=== PATIENT | female | born 1950 | race Caucasian/White ===

== ENCOUNTER 2019-03-14 18:50 | Inpatient (IN) | payer MEDICARE, OTHER ==
[~2019-03-14] VITALS: Ht 157.5 cm; Wt 97.5 kg
[2019-03-14] MEDS ORDERED: METFORMIN HCL500 M3 PO (18:56)
[2019-03-14] MEDS ORDERED: LISINOPRIL20 MG PO (18:57)
[2019-03-14] MEDS ORDERED: SERTRALINE HCL100 MG PO (18:57)
[2019-03-14] MEDS ORDERED: CARDIZEM CD 18180 M3 PO (18:57)
[2019-03-14 19:40] LABS: ABSOLUTE BASOPHILS 0.1 thou/uL (0.0-0.2); ABSOLUTE EOSINOPHILS 0.1 thou/uL (0.0-0.7); ABSOLUTE LYMPHOCYTES 1.8 thou/uL (0.8-5.3); ABSOLUTE NEUTROPHILS 9.5 thou/uL (1.6-8.1); BASOPHILS 0.6 %; EOSINOPHILS 0.9 %; HEMATOCRIT 44.8 % (37.0-47.0); HEMOGLOBIN 14.9 gm/dL (12.0-15.0); LYMPHOCYTES 14.5 %; MCH 30.3 pg (26.0-34.0); MCHC 33.2 g/dL (28.0-37.0); MCV 91.4 fL (80.0-100.0); MPV 8.8 fl. (7.2-11.1); NUCLEATED RBCS 0 /100WBC; PLATELET COUNT* 213 thou/uL (150-400); RBC 4.91 mil/uL (4.20-5.00); RDW-CV 13.6 % (10.5-14.5); WBC 12.5 thou/uL (4.0-11.0)
[2019-03-14 19:59] LABS: APTT 24.3 Seconds (25.0-31.3); PROTIME 10.7 Seconds (9.20-11.50)
[2019-03-14 20:00] VITALS: BP 123/65
[2019-03-14 20:00] LABS: CALCIUM 9.5 mg/dL (8.5-10.1); CREATININE 1.4 mg/dL (0.6-1.3); POTASSIUM 4.3 mmol/L (3.5-5.1)
[2019-03-14 20:04] LABS: ALBUMIN 4.2 g/dL (3.4-5.0); TOTAL BILIRUBIN 0.2 mg/dL (<0.1-1.0); TOTAL PROTEIN 7.5 g/dL (6.4-8.2)
[2019-03-14] MEDS ORDERED: XARELTO15 MG PO (20:50)
[2019-03-14] MEDS ORDERED: XARELTO20 MG PO (20:50)
[2019-03-14 23:45] VITALS: BP 144/77
[2019-03-14 23:50] VITALS: BP 123/65
[2019-03-15] MEDS ORDERED: CARDIZEM CD 18180 M3 PO (02:18)
[2019-03-15 03:30] VITALS: BP 89/49
--- NOTE | 2019-03-15 09:21 | NUR ---
RECEIVED REPORT FROM ER NURSE, RODGER, AT 2335. PATIENT ARRIVED ON FLOOR AT 2350. ASSESSMENT COMPLETED CHARTED. PATIENT ORIENTED TO ROOM, BED FUNCTIONS, CALL LIGHT, AND HOSPITAL POLICY. PATIENT IS NSR ON THE MONITOR. HOURLY ROUNDING IN PLACE FOR PATIENT SAFETY. CLWR.
[2019-03-15] MEDS ORDERED: XARELTO15 MG PO (10:46)
[2019-03-15 11:57] VITALS: BP 99/29
[2019-03-15 12:46] LABS: ABSOLUTE BASOPHILS 0.1 thou/uL (0.0-0.2); ABSOLUTE LYMPHOCYTES 2.3 thou/uL (0.8-5.3); ABSOLUTE MONOCYTES 1.3 thou/uL (0.0-1.2); BASOPHILS 0.4 %; EOSINOPHILS 0.3 %; HEMATOCRIT 41.3 % (37.0-47.0); HEMOGLOBIN 13.5 gm/dL (12.0-15.0); LYMPHOCYTES 17.1 %; MCHC 32.8 g/dL (28.0-37.0); MCV 91.4 fL (80.0-100.0); MONOCYTES 9.6 %; MPV 8.8 fl. (7.2-11.1); NUCLEATED RBCS 0 /100WBC; PLATELET COUNT* 205 thou/uL (150-400); POLYS 72.6 %; RBC 4.52 mil/uL (4.20-5.00); RDW-CV 13.5 % (10.5-14.5); WBC 13.7 thou/uL (4.0-11.0)
[2019-03-15 12:55] LABS: CALCIUM 9.6 mg/dL (8.5-10.1); CREATININE 2.9 mg/dL (0.6-1.3); POTASSIUM 5.1 mmol/L (3.5-5.1)
[2019-03-15 16:25] VITALS: BP 105/39
[2019-03-15 20:00] VITALS: BP 122/42
[2019-03-16] VITALS: BP 122/58
[2019-03-16 04:00] VITALS: BP 118/65
[2019-03-16 05:19] LABS: HEMATOCRIT 37.1 % (37.0-47.0); HEMOGLOBIN 12.3 gm/dL (12.0-15.0); MCH 30.3 pg (26.0-34.0); MCHC 33.3 g/dL (28.0-37.0); MPV 8.5 fl. (7.2-11.1); RBC 4.07 mil/uL (4.20-5.00); RDW-CV 13.5 % (10.5-14.5); WBC 12.1 thou/uL (4.0-11.0)
[2019-03-16 05:31] LABS: POTASSIUM 5.1 mmol/L (3.5-5.1)
--- NOTE | 2019-03-16 08:24 | NUR ---
ASSUMED PATIENT CARE AT 1900. ASSESSMENT COMPLETED CHARTED. PATIENT IS NSR ON THE MONITOR. HOURLY ROUNDING IN PLACE FOR PATIENT SAFETY. CLWR.
[2019-03-16 08:28] VITALS: BP 140/53
--- NOTE | 2019-03-16 11:19 | NUR ---
cm completed initial assessment to discuss d/c planning, pt a&ox4. pt states she lives at home, her son lives with her. family is suportive. pt is active, independent w/adls. and still drives, she is retired. pt states she has no hx w/snf nor hh. cm to remain avail to asssist as needed.
[2019-03-16 12:03] VITALS: BP 94/56
[2019-03-16 15:37] VITALS: BP 113/51
[2019-03-16 20:00] VITALS: BP 125/56
[2019-03-17] VITALS: BP 107/50
[2019-03-17 04:00] VITALS: BP 118/54
[2019-03-17 04:25] LABS: ABSOLUTE BASOPHILS 0.1 thou/uL (0.0-0.2); ABSOLUTE EOSINOPHILS 0.2 thou/uL (0.0-0.7); ABSOLUTE LYMPHOCYTES 2.6 thou/uL (0.8-5.3); ABSOLUTE MONOCYTES 1.3 thou/uL (0.0-1.2); ABSOLUTE NEUTROPHILS 7.5 thou/uL (1.6-8.1); BASOPHILS 0.6 %; EOSINOPHILS 1.9 %; HEMATOCRIT 36.3 % (37.0-47.0); HEMOGLOBIN 12.3 gm/dL (12.0-15.0); MCH 30.7 pg (26.0-34.0); MCHC 33.8 g/dL (28.0-37.0); MONOCYTES 10.8 %; MPV 8.4 fl. (7.2-11.1); NUCLEATED RBCS 0 /100WBC; PLATELET COUNT* 194 thou/uL (150-400); POLYS 64.7 %; RBC 3.99 mil/uL (4.20-5.00); RDW-CV 13.4 % (10.5-14.5); WBC 11.6 thou/uL (4.0-11.0)
[2019-03-17 04:38] LABS: POTASSIUM 5.4 mmol/L (3.5-5.1)
[2019-03-17 04:59] LABS: CREATININE 1.8 mg/dL (0.6-1.3)
[2019-03-17 08:06] VITALS: BP 107/50
--- NOTE | 2019-03-17 09:06 | NUR ---
ASSUMED PATIENT CARE AT 1900. ASSESSMENT COMPLETED CHARTED. PATIENT IS NSR ON THE MONITOR. HOURLY ROUNDING IN PLACE FOR PAIENT SAFETY. CLWR.
--- NOTE | 2019-03-17 10:28 | NUR ---
PT TRANSFER TO ROOM 117. REPORT GIVEN TO STELLA HOOKS.
--- NOTE | 2019-03-17 11:06 | NUR ---
PT ARRIVED FROM TELE ABOUT 1040. RECEIVED REPORT FROM PREVIOUS NURSE. AGREE WITH THE ASSESSMENT CHARGED. IV PATENT. PT STABLE. CALL LIGHT WITHIN REACH. WILL CONTINUE TO MONITOR.
[2019-03-17] MEDS ORDERED: ELIQUIS5 MG PO (12:53)
[2019-03-17] MEDS ORDERED: ULTRAM 50MG TAB50 MG PO (12:53)
--- NOTE | 2019-03-17 13:50 | NUR ---
CONTINUE TO FOLLOW, MET WITH PT TO DISCUSS DC PLAN. PT LIVES WITH HER SON BUT HER WORKS AND WON'T BE HOME ALL THE TIME. PT STATES SHE FEELS SHE CAN MANAGE AND WOULD BE INTERESTED IN HH. DISCUSSED OPTIONS AND [facility]OSE [facility]. SCRIPT FOR FERMIN WRITTEN AND CALLED TO CHECK COST ONLY, IS $35/MONTH. WILL FOLLOW AND FINALIZE PLANS AT DC
[2019-03-17 15:36] VITALS: BP 120/45
--- NOTE | 2019-03-17 16:55 | NUR ---
PT A&Ox4. VITALS STABLE. IV PATENT, FLUIDS INFUSING. ON RA. UP STB USING WALKER. ENCOURAGE AMBULATION. TOLERATING DIET. LEFT LEG STILL SWOLLEN. CALL LIGHT WITHIN REACH. WILL CONTINUE TO MONITOR.
[2019-03-17 20:13] VITALS: BP 146/69
[2019-03-18 05:29] LABS: CALCIUM 8.5 mg/dL (8.5-10.1); CREATININE 1.1 mg/dL (0.6-1.3); POTASSIUM 5.4 mmol/L (3.5-5.1)
--- NOTE | 2019-03-18 06:06 | NUR ---
PATIENT HAS REMAINED ALERT AND ORIENTED X 4 THROUGHOUT THE SHIFT AND RESTING QUIETLY AT HOURLY ROUNDS. REPORTS FLUCUATING PERIODS OF STIFFNESS/PRESSURE OF LLE WITH THE SWELLING. COMPLETING EXERCISES OUTLINED BY PT THROUGHOUT THE SHIFT. UP TO BSC INDEPENDENTLY. LLE ELEVATED WHEN IN BED. VITAL SIGNS STABLE. MEDS/IVF'S PER ORDERS. MEDICATED FOR PAIN X 3 THIS SHIFT TO GOOD EFFECT. CONTINUE TO MONITOR.
[2019-03-18 07:45] VITALS: BP 125/50
[2019-03-18] MEDS ORDERED: ELIQUIS5 MG PO (09:23)
[2019-03-18 10:16] VITALS: BP 125/50
--- NOTE | 2019-03-18 13:00 | NUR ---
PT.TO DISCHARGE TODAY. SHE WAS REQUESTING HOME HEALTH. LALA CALLED FOR ORDERS. SHE WOULD LIKE TO USE [facility]. CALLED AND SPOKE WITH [facility]ILY[facility]. FAXED HER REFERRAL AND DISCHARGE SUMMARY. THEY WILL SEE PT.FRIDAY OR FRIDAY. PT.ALSO NEEDS A WALKER. ORDER OBTAINED. [facility]OV.[employer] WALKER. FAXED FACE SHEET AND ORDER TO HER. THERAPY TO DISPENSE WALKER PRIOR TO DISCHARGE. PT.SAID SON COULD NOT COME UNTIL ABOUT 3 TO PICK HER UP.
--- NOTE | 2019-03-18 17:04 | NUR ---
PT DISCHARGED TO HOME WITH HOME HEALTH AT 1704 BY WHEELCHAIR WITH NURSING STAFF AND SON. IV OUT. PERSONAL ITEMS SENT WITH PT. PAPER SCRIPT SENT WITH PT. WALKER SENT WITH PT. PT STABLE UPON DISCHARGE. PAIN CONTROLLED.
== END 2019-03-18 17:10 | disposition home health service (06) | DRG 682 ==
LOC: M.ERS 18:50 → M.TBA-ER 22:58 → M.2W 22:58 → M.ORTHSURG 03-17 10:41
PROVIDERS: Family Medicine; Personal Emergency Response Attendant; ADMIT Internal Medicine
DX: N17.0 Acute kidney failure with tubular necrosis (principal); R65.11 Systemic inflammatory response syndrome (SIRS) of non-infectious origin with acute organ dysfunction; I82.432 Acute embolism and thrombosis of left popliteal vein; I82.812 Embolism and thrombosis of superficial veins of left lower extremity; D72.0 Genetic anomalies of leukocytes; E66.9 Obesity, unspecified; F41.9 Anxiety disorder, unspecified; F32.9 Major depressive disorder, single episode, unspecified; N18.3 Chronic kidney disease, stage 3 (moderate); E11.22 Type 2 diabetes mellitus with diabetic chronic kidney disease; I12.9 Hypertensive chronic kidney disease with stage 1 through stage 4 chronic kidney disease, or unspecified chronic kidney disease; I99.8 Other disorder of circulatory system; I95.9 Hypotension, unspecified; M54.31 Sciatica, right side; Z79.899 Other long term (current) drug therapy; Z88.2 Allergy status to sulfonamides; Z83.3 Family history of diabetes mellitus; Z68.39 Body mass index [BMI] 39.0-39.9, adult; Z82.49 Family history of ischemic heart disease and other diseases of the circulatory system; Z79.01 Long term (current) use of anticoagulants; Z79.4 Long term (current) use of insulin

== ENCOUNTER 2019-04-04 14:02 | Inpatient (IN) | payer MEDICARE, OTHER ==
[~2019-04-04] VITALS: Ht 157.5 cm; Wt 90.7 kg
[~2019-04-04 14:02] MED LIST: CARDIZEM CD 18180 M3 PO; ELIQUIS5 MG PO; LISINOPRIL20 MG PO; METFORMIN HCL500 M3 PO; SERTRALINE HCL100 MG PO; ULTRAM 50MG TAB50 MG PO; XARELTO15 MG PO; XARELTO20 MG PO
[2019-04-04 14:13] VITALS: BP 176/86
[2019-04-04 14:22] LABS: ABSOLUTE BASOPHILS 0.1 thou/uL (0.0-0.2); ABSOLUTE EOSINOPHILS 0.1 thou/uL (0.0-0.7); ABSOLUTE MONOCYTES 0.8 thou/uL (0.0-1.2); ABSOLUTE NEUTROPHILS 3.9 thou/uL (1.6-8.1); BASOPHILS 0.9 %; EOSINOPHILS 1.5 %; HEMATOCRIT 38.6 % (37.0-47.0); HEMOGLOBIN 13.1 gm/dL (12.0-15.0); LYMPHOCYTES 29.3 %; MCH 30.3 pg (26.0-34.0); MCHC 34.1 g/dL (28.0-37.0); MONOCYTES 11.7 %; NUCLEATED RBCS 0 /100WBC; PLATELET COUNT* 410 thou/uL (150-400); POLYS 56.6 %; RBC 4.33 mil/uL (4.20-5.00); RDW-CV 13.5 % (10.5-14.5); WBC 6.9 thou/uL (4.0-11.0)
[2019-04-04 14:31] LABS: CALCIUM 8.7 mg/dL (8.5-10.1); CREATININE 0.9 mg/dL (0.6-1.3); INR 1.1; POTASSIUM 3.6 mmol/L (3.5-5.1); PROTIME 11.5 Seconds (9.20-11.50)
[2019-04-04 14:45] LABS: ALBUMIN 3.8 g/dL (3.4-5.0); CK-MB MASS 1.3 ng/mL (<0.5-3.6); MAGNESIUM 1.5 mg/dL (1.8-2.4); TOTAL BILIRUBIN 0.2 mg/dL (<0.1-1.0); TOTAL PROTEIN 7.3 g/dL (6.4-8.2)
[2019-04-04 17:08] VITALS: BP 171/78
[2019-04-04 18:00] VITALS: BP 142/85
--- NOTE | 2019-04-04 19:48 | NUR ---
PT VSS, A&OX4, NSR ON TELE, ACCUCHECK, NPO AT MIDNIGHT, HOURLY ROUNDING PERFORMED, POSSESSIONS AND CALL LIGHT WITHIN REACH. PATIENT ORIENTED TO ROOM AND CONTROLS
[2019-04-04 20:00] VITALS: BP 144/61
--- NOTE | 2019-04-04 20:00 | NUR ---
RECEIVED REPORT AND ASSUMED CARE OF PT, ASSESSMENT COMPLETED. DENIES CP OR SOA. DISCUSSED NPO FOR POSS TEST IN AM. TELEMETRY ON SHOWING SR. WILL CONT TO MONITOR AND ASSIST NEEDED.
--- NOTE | 2019-04-04 22:30 | NUR ---
PT C/O MID STERNAL CHEST PAIN, DULL ACHING PRESSURE. PO TYLENOL GIVEN AND PAIN RESOLVED. TELEMETRY CONT TO SHOW SR. TROP RESULTS 0.71 WILL CONT TO MONITOR PT.
[2019-04-05] VITALS: BP 102/57
[2019-04-05 04:00] VITALS: BP 140/62
[2019-04-05 06:24] LABS: ABSOLUTE EOSINOPHILS 0.2 thou/uL (0.0-0.7); ABSOLUTE LYMPHOCYTES 2.3 thou/uL (0.8-5.3); ABSOLUTE MONOCYTES 0.8 thou/uL (0.0-1.2); ABSOLUTE NEUTROPHILS 3.4 thou/uL (1.6-8.1); BASOPHILS 0.7 %; EOSINOPHILS 3.1 %; HEMOGLOBIN 11.9 gm/dL (12.0-15.0); LYMPHOCYTES 33.9 %; MCH 30.1 pg (26.0-34.0); MCHC 33.9 g/dL (28.0-37.0); MCV 88.6 fL (80.0-100.0); MONOCYTES 11.6 %; MPV 7.7 fl. (7.2-11.1); NUCLEATED RBCS 0 /100WBC; PLATELET COUNT* 359 thou/uL (150-400); POLYS 50.7 %; RBC 3.96 mil/uL (4.20-5.00); RDW-CV 13.5 % (10.5-14.5); WBC 6.8 thou/uL (4.0-11.0)
--- NOTE | 2019-04-05 06:30 | NUR ---
SLEPT WELL TONIGHT. NO FURTHER CHEST PAIN. THINKS TYLENOL REALLY HELPED. GAIT STEADY TO AND FROM BR WITH WALKER. TELEMETRY CONT TO SHOW SR. NPO SINCE [place]. HS GOALS OF REST AND SAFETY ACHIEVED. HOURLY ROUNDING OBSERVED.
[2019-04-05 06:40] LABS: CALCIUM 8.6 mg/dL (8.5-10.1); POTASSIUM 4.8 mmol/L (3.5-5.1)
[2019-04-05 06:41] LABS: TROPONIN-I LEVEL 0.68 ng/mL (<0.06)
[2019-04-05 08:00] VITALS: BP 142/85
--- NOTE | 2019-04-05 10:00 | EKG ---
[place] [address] ELECTROCARDIOGRAM REPORT Name: AUREA TROY Room: [address] ADM IN [facility].#: [id number] Admission: 04/04/19 Attend Phys: Flakito Live MD Discharge: Date of : 46 Report #: [id number] THIS REPORT FOR: //name// [facility] ED Test Date: 2019-04-04 Test Time: 14:10:16 Pat Name: AUREA TROY Department: Room: [facility] Gender: F Beauty [employer] Instructor: [facility] : 1950 Requested By: Luis Manuel Gaona Order Number: [id number] MD: Earl Garduno Measurements Intervals [place] Rate: 100 P: 56 OK: 163 QRS: 1 QRSD: 85 T: 57 QT: 368 QTc: 475 Interpretive Statements Sinus tachycardia Probable left atrial enlargement Low voltage, precordial leads Nonspecific repol abnormality, lateral leads No previous ECG available for comparison Electronically Signed On 04-05-2019 9:59:48 TOOL AND DIE ENGINEER by Earl Garduno [email or web address] <ELECTRONICALLY SIGNED> By: Earl Garduno MD, [facility] 04/05/19 0959 1410 1410 Earl Garduno MD, [facility] /EPI
[2019-04-05 12:00] VITALS: BP 162/67
--- NOTE | 2019-04-05 16:41 | NUR ---
Pt is A&O. Resides at home with son. Independent. Pt has a walker that she's been using recently. Current with [facility]. No hx of SNF. Pt scheduled to have a cath tomorrow. Goal is home at dc, Pt wants to resume HH.
[2019-04-05 17:13] VITALS: BP 135/59
--- NOTE | 2019-04-05 17:16 | CON ---
[address] [address] CONSULTATION Name: WOODROWAUREA M Room: [address] IN M.R.#: [id number] Admission: 04/04/19 Attend Phys: Flakito Live MD Discharge: Date of : 46 Report #: [id number] THIS REPORT FOR: //name// CC: Flakito Rivera Rahman DATE OF SERVICE: 04/05/2019 CARDIOLOGY CONSULTATION HISTORY OF PRESENT ILLNESS: The patient is a 68-year-old single white female, who I was asked to see in the hospital today after she complained of chest pain. The patient has no previous history of heart disease. She does have a long history of hypertension, diabetes. She was told in the past that she had a heart murmur. She is not very active at this time. Apparently 3 weeks ago, she developed swelling of her left leg. She was admitted here to [facility] and found to have evidence of DVT. She was placed on Eliquis. Since that time, the swelling has improved. She denied any significant left leg pain. She denied any recent long car ride or plane ride. Yesterday, she was at home, she felt a burning in her chest, went into her back. It lasted about 20 minutes after eating oatmeal. It lasted several hours. Her son brought to the Emergency Room and she was admitted. She denied the pain radiating into her arms. No associated shortness of breath, diaphoresis, nausea. She has had no vomiting or cough. She denied any trauma to her chest. PAST MEDICAL HISTORY: She had a hysterectomy. 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 She has hypertension, diabetes, no hyperlipidemia. MEDICATIONS: Include diltiazem, Eliquis, metformin. ALLERGIES: SHE HAS AN ALLERGY TO SULFA DRUGS. FAMILY HISTORY: Father of heart attack. SOCIAL HISTORY: She is , lives in [place]. No smoking or alcohol abuse. REVIEW OF SYSTEMS: She has had no history of stroke or asthma. She has had a fatty liver, chronic kidney disease. No cancer. No psychiatric illness. No chronic skin condition. PHYSICAL EXAMINATION: GENERAL: Revealed an elderly female lying in bed. She appeared in no distress. VITAL SIGNS: Her blood pressure of 140/80, pulse is 80, [place] [address] CONSULTATION Name: AUREA TROY Room: [address]#: [id number] Admission: 04/04/19 Attend Phys: Flakito Live MD Discharge: Date of : 46 Report #: [id number] HEENT: She is anicteric. Conjunctivae pink. Mucous membranes moist. NECK: Veins do not appear distended. No carotid bruits. CHEST: Clear to auscultation. CARDIOVASCULAR: Regular rate and rhythm. There was a grade 2 systolic ejection murmur along the left sternal border. ABDOMEN: Obese. EXTREMITIES: There is 1+ edema in the left lower extremity. Dorsalis pedis pulse cannot be palpated. SKIN: Cool and dry. NEUROLOGIC: Nonfocal. DIAGNOSTIC DATA: ECG showed a sinus rhythm with nonspecific ST-segment changes. Her workup in the Emergency Room last night, she had a portable chest x-ray that showed normal heart size, clear lung davis. CT scan of the chest using a PE protocol last night showed no pulmonary embolus or aortic dissection. There was evidence of coronary artery disease with coronary artery calcifications, gallstones noted. Her venous duplex scan done on 03/14 last month showed thrombus in the greater saphenous vein. Previous occlusion of the popliteal vein. Superficial vein appeared to be recanalized. She had a lower extremity arterial study done last month, showed no significant PAD. LABORATORY DATA: Her lab studies last month: Sodium 143; BUN 16; creatinine last month was 3.0, which is now 0.9; glucose 126. Liver function studies were normal. Troponin was 0.71, this morning is 0.68. Her white blood cell count 6.8, hemoglobin 11.9. IMPRESSION AND RECOMMENDATIONS: 1. Type 2 myocardial infarction. Recommend cardiac catheterization. The patient will need to hold Eliquis for 24 hours. 2. Recent venous thrombosis of the left lower extremity. Venous duplex scan showed thrombosis of the left superficial femoral vein. Thrombus in the greater saphenous vein. I would hold Eliquis at this time. 3. Hypertension. The patient is on calcium pebbles. 4. Diabetes. The patient is on metformin. 5. Obesity. 6. Chronic kidney disease. <ELECTRONICALLY SIGNED> By: Earl Garduno MD, [facility] 04/05/19 1716 0814 0841Earl Garduno MD, FACC /nt
[2019-04-05] MEDS ORDERED: LIPITOR20 MG PO (17:33)
[2019-04-05] MEDS ORDERED: ZOVIRAX200 MG PO (17:34)
[2019-04-05] MEDS ORDERED: BENTYL 10 MG CA10 MG PO (17:35)
[2019-04-05] MEDS ORDERED: COREG6.25 MG PO (17:35)
[2019-04-05] MEDS ORDERED: DIGOX125 MCG PO (17:37)
[2019-04-05] MEDS ORDERED: NEURONTIN300 MG PO (17:38)
[2019-04-05] MEDS ORDERED: MORPHINE SULFAT15 M3 PO (17:39)
[2019-04-05] MEDS ORDERED: MORPHABOND ER30 MG PO (17:39)
[2019-04-05] MEDS ORDERED: PROTONIX40 M2 PO (17:40)
[2019-04-05] MEDS ORDERED: OMEPRAZOLE40 MG PO (17:40)
[2019-04-05] MEDS ORDERED: REQUIP 0.25 M0.25 MG PO (17:41)
[2019-04-05] MEDS ORDERED: ASA81BEC PO (17:42)
[2019-04-05] MEDS ORDERED: CARAFATE 1 GM TA1 GM PO (17:44)
[2019-04-05] MEDS ORDERED: VITAMIN D32000 UNIT PO (17:45)
[2019-04-05] MEDS ORDERED: SUPER THERAVIT1 EACH PO (17:45)
[2019-04-05] MEDS ORDERED: PERCOCET 5-3251 EACH PO (17:46)
[2019-04-05] MEDS ORDERED: LISINOPRIL2.5 MG (17:47)
--- NOTE | 2019-04-05 18:00 | NUR ---
PT VSS, NSR ON TELE, A&OX4, SBA WITH WALKER, PATIENT NPO AT MIDNIGHT CATH 04/06/19 AM, HOURLY ROUNDING PERFORMED, POSSESSIONS AND CALL LIGHT WITHIN REACH
[2019-04-05 20:00] VITALS: BP 152/65
--- NOTE | 2019-04-05 20:00 | NUR ---
RECEIVED REPORT AND ASSUMED CARE OF PT, ASSESSMENT COMPLETED. PT C/O CHEST PAIN. STATES SHE WAS TALKING ON THE PHONE AND FELT IT. PT ASKING FOR TYLENOL IMMEDIATELY BUT THEN WANTING TO WALK TO THE BR. MED GIVEN AND EFFECTIVE. TELEMETRY ON SHOWING SR. DISCUSSED THIS WITH PT THAT COULD BE ANXIETY ALSO BUT SHE DENIED THIS. WILL CONT TO MONITOR AND ASSIST NEEDED.
[2019-04-06] VITALS (13 sets, daily range): BP systolic 108–156; BP diastolic 43–82
--- NOTE | 2019-04-06 06:30 | NUR ---
SLEPT WELL TONIGHT. NO FURTHER CHEST PAIN. GAIT STEADY TO AND FROM BR WITH WALKER. NPO SINCE ME FOR CARDIAC CATH THIS AM. PT ANXIOUS ABOUT TIME AND MEDS. NO CHANGE IN ASSESSMENT. HS GOALS OF REST AND SAFETY ACHIEVED. HOURLY ROUNDING OBSERVED.
[2019-04-06 06:31] LABS: CHOLESTEROL 179 mg/dL (<200); HDL CHOLESTEROL 45 mg/dL (>40); LDL CHOLESTEROL 117 mg/dL (<100); TRIGLYCERIDE 88 mg/dL (<150); VLDL 18 mg/dL (<40)
[2019-04-06 06:33] LABS: SERUM ASSESSMENT Clear
--- NOTE | 2019-04-06 13:26 | NUR ---
Cath completed, Pt needs to transfer to [facility] for open heart. Dr Garduno spoke with Dr Lane's nurse. LALA contacted Kati, intermission coordinator at [facility], they will have beds later today post planned discharges. U/S copied chart and will fill out ambulance transfer form and EMTALA form. CM updated hospitalist. Faxed facesheet to Kati. Awaiting call from [facility] with bed assignment and accepting Drs name. Updated nurse. Following.
--- NOTE | 2019-04-06 18:48 | NUR ---
VSS, SR TO ST ON TELE, A&OX4, POST CATH RIGHT WRIST TODAY. NPO AT MIDNIGHT FOR CATH AND STENT PLACEMENT 8AM TOMORROW. NO BLEEDING, NO BRUISING ON WRIST, HOURLY ROUNDING PERFORMED, POSSESSIONS AND CALL LIGHT WITHIN REACH.
--- NOTE | 2019-04-06 20:00 | NUR ---
RECEIVED REPORT AND ASSUMED CARE OF PT, ASSESSMENT COMPLETED. PT ANXIOUS ABOUT CARDIAC CATH TOMORROW AND UPSET ABOUT HOW IT WAS DISCUSSED WITH HER. REASSURANCE GIVEN. RT WRIST CATH SITE WITHOUT HEMATOMA OR DRAINAGE. TELEMETRY SHOWING SR. WILL CONT TO MONITOR AND ASSIST NEEDED.
[2019-04-07] VITALS (18 sets, daily range): BP systolic 101–145; BP diastolic 41–76
--- NOTE | 2019-04-07 05:03 | NUR ---
SLEPT WELL TONIGHT. ASSISTED TO BR AND BACK WITH STEADY GAIT AND WALKER. IVF CONT TO INFUSE. PO TYLENOL GIVEN X1 FOR ANTICIPATION OF CHEST PAIN. NPO SINCE [place] FOR CARDIAC CATH TODAY. NO CHANGES IN ASSESSMENT. RT WRIST WITHOUT INCIDENT. HS GOALS OF REST AND SAFETY ACHIEVED. HOURLY ROUNDING OBSERVED.
--- NOTE | 2019-04-07 08:28 | NUR ---
Pt did not transfer yesterday, planned stent placement today. Following.
--- NOTE | 2019-04-07 11:00 | CARD ---
[address] [address] CARDIAC CATH REPORT Name: AUREA TROY Room: [address] IN [facility]#: [id number] Admission: 04/04/19 Attend Phys: Flakito Live MD Discharge: Date of : 46 Report #: [id number] THIS REPORT FOR: //name// APPROVED REPORT Study performed: 04/07/2019 07:46:37 Patient Details Patient Status: In-Patient Room #: The patient is a 68 year-old female Event Personnel Earl Garduno Timber Cruiser, Fanny Rangel RN Forest Fire Warden, Narinder Valencia ASSEMBLER INSULATOR ScrubJanis Adam RTR Monitor Procedures Performed ALYAS Place w/wo Plasty Single CIRC [id number] ALYSA Place w/wo Plasty Single LAD [id number] , Indication Non-STEMI , Chest pain Risk Factors Arterial Hypertension, Hypertension, Diabetes Admission/Lab Medications/Medications given during procedure Glycoprotein IllbIlla Inhibitors, Heparin Low Molecular Weight, Midazolam (Versed) IV 2 mg, Fentanyl IV 25 mcg, 0.9% Sodium Chloride IV 125 ml per hr, Lidocaine Subcut 20 ml, Aggrastat Unknown 9.2 ml, Nitroglycerin IC 200 mcg, Plavix PO 600 mg Procedure Narrative The patient was brought electively to the Cardiac Catheterization Laboratory and was prepped and draped in a sterile manner. The right femoral was infiltrated with 2% Lidocaine subcutaneous anesthesia. A 6fr Ultimum Sheath sheath was inserted into the right femoral artery. Coronary angiography was performed using coronary diagnostic catheters. The patient tolerated the procedure well and there were no complications associated with the procedure. Difficutly advancing J tipped wire requiring removing of wire and holding pressure. Needle reinserted into femoral artery and wholey wire was able to be advanced. At the end of the procedure, femoral arteriogram appearred to show a small dissection. The sheath was sutured in place, [place] [address] CARDIAC CATH REPORT Name: AUREA TROY Room: [address] IN [facility]#: [id number] Admission: 04/04/19 Attend Phys: Flakito Live MD Discharge: Date of : 46 Report #: [id number] plan was to pull the sheath after 4 hours and achieve hemostasis with manual pressure. Intraoperative Conscious Sedation Sedation start time: 845 Case end Time: 945 Fentanyl 75 mcg Versed 2 mg Dose: 1555.06 mGy Contrast Type and Amount: Visipaque 150 ml Coronary Angiography The patient's coronary anatomy is right dominant. Diagnostic Cath Left Main 0% stenosis LAD 80% ostial stenosis Diagonal 1 60% ostial stenosis noted Circumflex 90% mid stenosis. 80% stenosis noted after the takeoff of the third marginal branch in the distal circumflex artery Right Coronary not visualized since angiogram yesterday showed no significant stenosis Left Ventriculography Left Ventriculography was not performed. Hemodynamics The aortic pressure is 118/50 mmHg with a mean of 79 mmHg. PCI Technique Lesion Anticoagulation was achieved with lovenox SQ. bolus of IV aggrastat given Percutaneous coronary intervention was performed on the mid circumflex artery segment. The lesion stenosis prior to intervention was 90% with DIMPLE 3 flow. A 6FR XB 3.5 100CM Guide Catheter was used to engage the Left ostium. A IG: BMW 190cm Interventional Guidewire was used to cross the lesion. BALLOON DILATION A Balloon catheter Trek RX 2.5 X 8 was inserted and inflated up to 14.00atm for 13seconds. Repeat angiography revealed the following post-dilatation results: 40% stenosis. Second BMW wire was advanced into the LAD. STENT DEPLOYMENT A drug-eluting stent [place] RX Stent [id number] was inserted and inflated up to 9atm for 18seconds. [place] [address] CARDIAC CATH REPORT Name: AUREA TROY Room: [address]#: [id number] Admission: 04/04/19 Attend Phys: Flakito Live MD Discharge: Date of : 46 Report #: [id number] following post-stent deployment results: 0% stenosis. Additional Inflation: 12.00atm for 17seconds. Final angiography reveals 0 % stenosis with DIMPLE 3 flow. PCI Technique Lesion 2 Percutaneous Coronary Intervention was performed on the proximal left anterior descending artery segment. Percutaneous coronary intervention was performed on the proximal left anterior descending artery segment. The lesion stenosis prior to intervention was 80% with DIMPLE 3 flow. A 6FR XB 3.5 100CM Guide Catheter was used to engage the Left ostium. A IG: BMW 190cm Interventional Guidewire was used to cross the lesion. Balloon Dilation A Balloon catheter Trek RX 2.5 X 8 was inserted and inflated up to 8.00atm for 8seconds. Repeat angiography revealed the following post-dilatation results: 40% stenosis. Additional Inflation: 10.00atm for 10seconds. Additional Inflation: 10.00atm for 8seconds. Stent Deployment A drug-eluting stent Jakub RX Stent 2.5X12mm was inserted and inflated up to 12.00atm for 12seconds. Repeat angiography revealed the following post-stent deployment results: 0% stenosis. Additional Inflation: 14.00atm for 15seconds. Additional Inflation: 14.00atm for 19seconds. Final angiography reveals 0 % stenosis with DIMPLE 3 flow. PCI Technique Lesion 3 Percutaneous Coronary Intervention was performed on the distal circumflex artery segment. Percutaneous coronary intervention was performed on the distal circumflex artery segment. The lesion stenosis prior to intervention was 80% with DIMPLE 2 flow. A 6FR XB 3.5 100CM Guide Catheter was used to engage the Left ostium. A IG: BMW 190cm Interventional Guidewire was used to cross the lesion. Balloon Dilation After inserting stent in the mid circumflex artery, the distal circumflex beyond the 3rd marginal branch appearred to have slow flow with possible dissection. Stent Deployment A drug-eluting stent Jakub RX Stent 2.0X8mm was inserted and inflated up to 11.00atm for 17seconds. Repeat angiography revealed the following post-stent deployment results: 0% stenosis. Additional [address] [address] CARDIAC CATH REPORT Name: AUREA TROY Room: [address] [facility] IN .R.#: [id number] Admission: 04/04/19 Attend Phys: Flakito Live MD Discharge: Date of : 46 Report #: [id number] Inflation: 12.00atm for 11seconds. Additional Inflation: 12.00atm for 6seconds. Final angiography reveals 0 % stenosis with DIMPLE 3 flow. Conclusion 1. successful placement of drug eluting stents in the proximal lad, mid circumflex, and distal circumflex Recommendations Cardiac Rehabilitation Referral Aggressive Medical Therapy Medications Administered Clopidogrel <ELECTRONICALLY SIGNED> By: Earl Garduno MD, FACC 04/07/19 1059 1059 1059Dacolt Garduno MD, FACC /INF
--- NOTE | 2019-04-07 13:21 | EKG ---
[place] [address] ELECTROCARDIOGRAM REPORT Name: AUREA TROY Room: [address] ADM IN .R.#: [id number] Admission: 04/04/19 Attend Phys: Flakito Live MD Discharge: Date of : 46 Report #: [id number] THIS REPORT FOR: //name// [facility] Test Date: 2019-04-07 Test Time: 11:40:54 Pat Name: AUREA TROY Department: Room: [address] Gender: F Jacker: : 1950 Requested By: Earl Garduno Order Number: [id number] Cesar MD: Earl Garduno Measurements Intervals [place] Rate: 68 P: 54 NC: 178 QRS: 1 QRSD: 85 T: 46 QT: 440 QTc: 469 Interpretive Statements Sinus rhythm Low voltage, precordial leads Compared to ECG 04/04/2019 14:10:16 Sinus tachycardia no longer present st changes no longer noted Electronically Signed On 04-07-2019 13:20:56 FLAG SIGNALMAN by Earl Garduno [email or web address] <ELECTRONICALLY SIGNED> By: Earl Garduno MD, [facility] 04/07/19 1320 1140 1140 Earl Garduno MD, [facility] /EPI
--- NOTE | 2019-04-07 17:13 | NUR ---
VSS, ASSUMED CARE THIS AM, ASSESSMENT PERFORMED AND CHARTED, FALL PRECAUTIONS IN PLACE AND CALL LIGHT IN REACH, PT IS A&O4 PT IS ON RA AND IS TRACING SR ON THE MONITOR, TODAY AT 0900 PT WAS TAKEN DOWN TO MEDIA SERVICES COORDINATOR, PT WAS BROUGHT BACK UP TO ME WITH SHELTH IN PLACE, IT WAS RMOVED AT NOON, CATH SITE CHECK SHOWED THERE TO BE A HEMOTOMA, MEDIA SERVICES COORDINATOR WAS CALLED UP TO HOLD PRESSURE AND CHECK SITE. PT STATES PAIN AT SITE AND IS UNABLE TO RATE, WILL FOLLOW WITH PLAN OF CARE,
[2019-04-08] VITALS (9 sets, daily range): BP systolic 111–146; BP diastolic 43–60
[2019-04-08 05:14] LABS: HEMATOCRIT 29.7 % (37.0-47.0); MCH 30.1 pg (26.0-34.0); MCHC 33.6 g/dL (28.0-37.0); MCV 89.5 fL (80.0-100.0); MPV 8.5 fl. (7.2-11.1); RBC 3.32 mil/uL (4.20-5.00); RDW-CV 13.7 % (10.5-14.5); WBC 8.3 thou/uL (4.0-11.0)
[2019-04-08 05:24] LABS: CALCIUM 8.1 mg/dL (8.5-10.1); POTASSIUM 4.4 mmol/L (3.5-5.1)
--- NOTE | 2019-04-08 08:10 | NUR ---
ASSUMED PT CARE AT APPROX 1930. PT IS AWAKE AND ORIENTED X4. VSS ON ROOM AIR. CREDIT CARD CLERK IN PLACE TRACING SR. ASSESSMENT DONE AND CHARTED. HEMATOMA NOTED ON RIGHT GROIN, REMAINED THE SAME SIZE. PT IS ABLE TO STAND UP AND WALK TO THE BATH ROOM THIS SHIFT. WITH COMPLAINTS OF PAIN ON RIGHT GROIN PARTIALLY RELIEVED BY PAIN MEDS GIVEN PER MAY. PT WAS ABLE TP SLEEP. CALL LIGHTS WITHIN REACH. HOURLY ROUNDING DONE FOR PT SAFETY.
[2019-04-08] MEDS ORDERED: CLOPIDOGREL75 MG PO (10:16)
[2019-04-08] MEDS ORDERED: LIPITOR40 MG PO ×2 (10:16→13:21)
[2019-04-08] MEDS ORDERED: ELIQUIS5 MG PO ×2 (10:16→10:53)
[2019-04-08] MEDS ORDERED: COREG6.25 MG PO (10:16)
[2019-04-08] MEDS ORDERED: TRAMADOL 50 MG50 MG PO (10:54)
[2019-04-08] MEDS ORDERED: METFORMIN HCL500 M3 PO (10:54)
[2019-04-08] MEDS ORDERED: LISINOPRIL2.5 MG PO (10:55)
[2019-04-08] MEDS ORDERED: DILTIAZEM ER180 M2 PO (10:57)
[2019-04-08] MEDS ORDERED: SERTRALINE HCL100 MG PO (10:57)
--- NOTE | 2019-04-08 11:36 | NUR ---
Pt discharging to home today, Pt opted to continue with HH prior to starting cardiac rehab. CM faxed resumption orders to [facility]
--- NOTE | 2019-04-08 13:00 | NUR ---
CALLED IN SCRIPTS TO [facility].
[2019-04-08] MEDS ORDERED: PLAVIX 75 MG TA75 M1 PO (13:22)
[2019-04-08] MEDS ORDERED: NITROGLYCERIN0.4 MG SUBLING (13:22)
--- NOTE | 2019-04-08 13:45 | EKG ---
[place] [address] ELECTROCARDIOGRAM REPORT Name: AUREA TROY Room: [address] ADM IN M.R.#: [id number] Admission: 04/04/19 Attend Phys: Flakito Live MD Discharge: Date of : 46 Report #: [id number] THIS REPORT FOR: //name// [facility] Test Date: 2019-04-08 Test Time: 04:44:10 Pat Name: AUREA TROY Department: Room: [address] Gender: F Chorus Dancer: : 1950 Requested By: Earl Garduno Order Number: [id number] Cesar MD: Earl Garduno Measurements Intervals [place] Rate: 71 P: 59 AL: 162 QRS: 2 QRSD: 83 T: 60 QT: 415 QTc: 451 Interpretive Statements Sinus rhythm Low voltage, precordial leads Compared to ECG 04/07/2019 11:40:54 No significant changes Electronically Signed On 04-08-2019 13:44:46 PUSH CONNECTOR ASSEMBLER by Earl Garduno [email or web address] <ELECTRONICALLY SIGNED> By: Earl Garduno MD, [facility] 04/08/19 1344 0444 0444 Earl Garduno MD, FACC /EPI
--- NOTE | 2019-04-08 15:51 | CARD ---
[address] [address] CARDIAC CATH REPORT Name: AUREA TROY Room: [address] IN [facility].#: [id number] Admission: 04/04/19 Attend Phys: Flakito Live MD Discharge: Date of : 46 Report #: [id number] THIS REPORT FOR: //name// APPROVED REPORT Study performed: 04/06/2019 10:53:09 Patient Details Patient Status: In-Patient Room #: The patient is a 68 year-old female Event Personnel Tanmay Carl Regional Education Coordinator, Fanny Rangel RN Train Planner, Saroj BustamanteIS Scrub, Angie Lyon RTR Monitor, Earl Garduno Lithograph Operator Procedures Performed Art Access - R radial artery , Left Heart Cath w/or w/o Coronaries , Hemostasis with Hemoband Admission/Lab Medications/Medications given during procedure Oxygen Nasal cannula 2 l per min, Nitroglycerin IA 400 mcg, Verapamil IA 5 mg, Hydralazine (Apresoline) IV 10 mg, Nitroglycerin SL 0.4 mg, Nitroglycerin Topical 1 in Procedure Narrative The patient was brought electively to the Cardiac Catheterization Laboratory and was prepped and draped in a sterile manner. The right wrist was infiltrated with 2% Lidocaine subcutaneous anesthesia. A 6F Slender Glidesheath sheath was inserted into the right radial artery. Coronary angiography was performed using coronary diagnostic catheters. The right coronary system was accessed and visualized with a 5F Conner 4.0 radial catheter. The left coronary system was accessed and visualized with a 5F Conner 4.0 radial catheter. The left ventricle was accessed and visualized with a 6F Pigtail catheter. Closure device was deployed with a Fr Vasc-Band Reg 24cm. The patient tolerated the procedure well and there were no complications associated with the procedure. Intraoperative Conscious Sedation Sedation start time: 12:22 Case end Time: 12:43 Fentanyl 25 mcg Versed 1 mg Fluoro Time: 4.0 [place] [address] CARDIAC CATH REPORT Name: AUREA TROY Justyn Room: [address]#: [id number] Admission: 04/04/19 Attend Phys: Flakito Live MD Discharge: Date of : 46 Report #: [id number] Dose: DAP 58603 cGycm2 835 mGy Contrast Type and Amount: Omnipaque 100 ml Coronary Angiography The patient's coronary anatomy is right dominant. Diagnostic Cath Left Main The left main coronary artery is normal and bifurcates into a left anterior descending and circumflex coronary artery. LAD The left anterior descending coronary artery has a 70% ostial narrowing. The remainder the vessel appears to be free of significant disease. Diagonal 1 The first diagonal branch is a small to moderate vessel that appears normal. Diagonal 2 The second diagonal branch is a moderate-sized vessel that is normal. Diagonal 3 The third diagonal branch is a moderate-sized vessel that is normal. Circumflex The circumflex coronary artery has 90% narrowing in the midportion and 70% narrowing after the takeoff of a second obtuse marginal branch. OM1 The first obtuse marginal is a high rising branch with a 70% ostial stenosis. OM2 The second obtuse marginal branch is a large branched vessel that is normal. OM3 The third obtuse marginal branch is a moderate-sized vessel that is normal. Right Coronary The right coronary artery is a dominant vessel. There is a focal 50% narrowing in the midportion of the vessel. R PDA The PDA has 50% narrowing proximally. The remainder the vessel is free of significant disease. RPLV The right posterolateral LV branch is free of significant disease. Left Ventriculography The left ventricle is normal in size with normal contractility. Hemodynamics The aortic pressure is 133/74 mmHg with a mean of 90 mmHg. The left ventricular pressure is 166/8 mmHg with a mean of mmHg. The left ventricular end diastolic pressure is 17 mmHg. Conclusion 1. Significant three-vessel coronary artery [place] [address] CARDIAC CATH REPORT Name: AUREA TROY Room: [address] IN .R.#: [id number] Admission: 04/04/19 Attend Phys: Flakito Live MD Discharge: Date of : 46 Report #: [id number] 2. Mildly elevated left ventricular end-diastolic pressure. 3. Normal left ventricular systolic function. Recommendations 1. Consider coronary artery bypass grafting. 2. Aggressive resector modification. Diagnostic Cath Approved by: Tanmay Carl MD Date/Time: <ELECTRONICALLY SIGNED> By: Tanmay Carl MD, FACC 04/08/19 1550 1550 1550Michael Tamar Carl MD, FACC /INF
[2019-04-09] VITALS: BP 114/36
[2019-04-09 02:10] LABS: GLYCOHEMOGLOBIN (HGB A1C) 5.9 % (4.8-5.6)
[2019-04-09 04:11] VITALS: BP 117/43
[2019-04-09 08:03] VITALS: BP 121/35
[2019-04-09] MEDS ORDERED: ELIQUIS5 MG PO (10:12)
[2019-04-09 12:00] VITALS: BP 129/50
[2019-04-09 15:08] VITALS: BP 116/50
--- NOTE | 2019-04-09 17:41 | NUR ---
VSS, ASSUMED CARE IN THE AM, ASSESSMENT PERFORMED AND CHARTED, FALL PRECAUTIONS IN PLACE AND CALL LIGHRT IN REACH, PT IS A&O4 UP WITH STAND BY, PT IS TRANCING SR ON THE MONITOR, PT IS GOAL IS TO D/C TO HOME, AT THIS TIME PT HAS BEEN DISCHARGED TO HOME, HOURLY ROUNDS COMPLETED
== END 2019-04-09 17:39 | disposition home health service (06) | DRG 246 ==
LOC: M.ERS 14:02 → M.TBA-ER 16:13 → M.2W 16:13
PROVIDERS: Family Medicine; Internal Medicine Cardiovascular Disease; ADMIT Internal Medicine
PROC: 3E053GC Introduction of Other Therapeutic Substance into Peripheral Artery, Percutaneous Approach (ICD-10-PCS; principal; 2019-04-06)
PROC: B2151ZZ Fluoroscopy of Left Heart using Low Osmolar Contrast (ICD-10-PCS; principal; 2019-04-06)
PROC: B2111ZZ Fluoroscopy of Multiple Coronary Arteries using Low Osmolar Contrast (ICD-10-PCS; principal; 2019-04-06)
PROC: 4A023N7 Measurement of Cardiac Sampling and Pressure, Left Heart, Percutaneous Approach (ICD-10-PCS; principal; 2019-04-06)
PROC: 4A023N7 Measurement of Cardiac Sampling and Pressure, Left Heart, Percutaneous Approach (ICD-10-PCS; 2019-04-07)
PROC: 027136Z Dilation of Coronary Artery, Two Arteries with Three Drug-eluting Intraluminal Devices, Percutaneous Approach (ICD-10-PCS; 2019-04-07)
PROC: B211YZZ Fluoroscopy of Multiple Coronary Arteries using Other Contrast (ICD-10-PCS; 2019-04-07)
PROC: B41FYZZ Fluoroscopy of Right Lower Extremity Arteries using Other Contrast (ICD-10-PCS; 2019-04-07)
DX: I21.A1 Myocardial infarction type 2 (principal); I50.33 Acute on chronic diastolic (congestive) heart failure; I74.3 Embolism and thrombosis of arteries of the lower extremities; N18.9 Chronic kidney disease, unspecified; E66.9 Obesity, unspecified; I25.10 Atherosclerotic heart disease of native coronary artery without angina pectoris; E11.22 Type 2 diabetes mellitus with diabetic chronic kidney disease; I72.4 Aneurysm of artery of lower extremity; I12.9 Hypertensive chronic kidney disease with stage 1 through stage 4 chronic kidney disease, or unspecified chronic kidney disease; E78.5 Hyperlipidemia, unspecified; Z79.01 Long term (current) use of anticoagulants; Z79.899 Other long term (current) drug therapy; Z28.21 Immunization not carried out because of patient refusal; Z88.1 Allergy status to other antibiotic agents; Z90.710 Acquired absence of both cervix and uterus; Z83.3 Family history of diabetes mellitus; Z82.49 Family history of ischemic heart disease and other diseases of the circulatory system; Z68.36 Body mass index [BMI] 36.0-36.9, adult; Z79.84 Long term (current) use of oral hypoglycemic drugs; Z88.2 Allergy status to sulfonamides; Z86.718 Personal history of other venous thrombosis and embolism; S30.1XXA Contusion of abdominal wall, initial encounter; X58.XXXA Exposure to other specified factors, initial encounter; Y93.89 Activity, other specified; Y92.89 Other specified places as the place of occurrence of the external cause; Y99.8 Other external cause status

== ENCOUNTER 2019-04-12 08:32 | Emergency (ER) | payer MEDICARE, OTHER ==
[~2019-04-12] VITALS: Ht 157.5 cm; Wt 90.7 kg
[~2019-04-12 08:32] MED LIST changes: +ASA81BEC PO; +BENTYL 10 MG CA10 MG PO; +CARAFATE 1 GM TA1 GM PO; +CLOPIDOGREL75 MG PO; +COREG6.25 MG PO; +DIGOX125 MCG PO; +DILTIAZEM ER180 M2 PO; +LIPITOR20 MG PO; +LIPITOR40 MG PO; +LISINOPRIL2.5 MG; +LISINOPRIL2.5 MG PO; +MORPHABOND ER30 MG PO; +MORPHINE SULFAT15 M3 PO; +NEURONTIN300 MG PO; +NITROGLYCERIN0.4 MG SUBLING; +OMEPRAZOLE40 MG PO; +PERCOCET 5-3251 EACH PO; +PLAVIX 75 MG TA75 M1 PO; +PROTONIX40 M2 PO; +REQUIP 0.25 M0.25 MG PO; +SUPER THERAVIT1 EACH PO; +TRAMADOL 50 MG50 MG PO; +VITAMIN D32000 UNIT PO; +ZOVIRAX200 MG PO
[2019-04-12 09:40] LABS: URINE BILIRUBIN NEGATIVE (Negative); URINE BLOOD NEGATIVE (Negative); URINE CLARITY CLEAR; URINE COLOR YELLOW; URINE GLUCOSE-RANDOM NEGATIVE (Negative); URINE KETONES NEGATIVE (Negative); URINE LEUKOCYTES-REFLEX TRACE (Negative); URINE NITRITE-REFLEX NEGATIVE (Negative); URINE PROTEIN NEGATIVE (Negative); URINE SPECIFIC GRAVITY 1.025 (1.005-1.030); URINE UROBILINOGEN 0.2 E.U./dl (0.2-1.0)
[2019-04-12 09:46] LABS: HEMATOCRIT 34.4 % (37.0-47.0); HEMOGLOBIN 11.9 gm/dL (12.0-15.0); MCH 30.7 pg (26.0-34.0); MCHC 34.7 g/dL (28.0-37.0); MCV 88.3 fL (80.0-100.0); MPV 8.5 fl. (7.2-11.1); RBC 3.89 mil/uL (4.20-5.00); RDW-CV 13.5 % (10.5-14.5); WBC 10.3 thou/uL (4.0-11.0)
[2019-04-12 09:51] LABS: SQUAMOUS >10 Many /LPF (0-3); URINE WBC-REFLEX 6-15 Few /HPF (0-5)
[2019-04-12 09:52] LABS: BACTERIA-REFLEX >30 Many /HPF (None Seen); CASTS None Seen /LPF (None Seen); CRYSTALS None Seen /LPF (None Seen); MUCUS 0-3 Light strn/LPF (None Seen); URINE RBC 0-2 Rare /HPF (0-2)
[2019-04-12 09:53] LABS: CALCIUM 9.3 mg/dL (8.5-10.1); POTASSIUM 4.2 mmol/L (3.5-5.1)
[2019-04-12 09:58] LABS: ALBUMIN 3.6 g/dL (3.4-5.0); TOTAL BILIRUBIN 0.7 mg/dL (<0.1-1.0); TOTAL PROTEIN 7.2 g/dL (6.4-8.2)
[2019-04-12 12:42] VITALS: BP 149/75
== END 2019-04-12 12:43 | disposition home or self-care (01) ==
LOC: M.ERS 08:32
PROVIDERS: Personal Emergency Response Attendant
DX: S30.1XXA Contusion of abdominal wall, initial encounter (principal); E11.9 Type 2 diabetes mellitus without complications; I10 Essential (primary) hypertension; I25.10 Atherosclerotic heart disease of native coronary artery without angina pectoris; Z95.5 Presence of coronary angioplasty implant and graft; Z88.2 Allergy status to sulfonamides; X58.XXXA Exposure to other specified factors, initial encounter; Y93.89 Activity, other specified; Y92.89 Other specified places as the place of occurrence of the external cause; Y99.8 Other external cause status

== ENCOUNTER 2019-07-29 10:12 | Inpatient (IN) | payer MEDICARE, OTHER ==
[~2019-07-29] VITALS: Ht 165.1 cm; Wt 90.1 kg
[2019-07-29 10:29] VITALS: BP 142/69
[2019-07-29 11:03] LABS: ABSOLUTE BASOPHILS 0.1 thou/uL (0.0-0.2); ABSOLUTE EOSINOPHILS 0.2 thou/uL (0.0-0.7); ABSOLUTE LYMPHOCYTES 1.8 thou/uL (0.8-5.3); ABSOLUTE MONOCYTES 0.6 thou/uL (0.0-1.2); ABSOLUTE NEUTROPHILS 5.7 thou/uL (1.6-8.1); BASOPHILS 0.9 %; EOSINOPHILS 1.9 %; HEMATOCRIT 41.8 % (37.0-47.0); LYMPHOCYTES 21.2 %; MCHC 33.5 g/dL (28.0-37.0); MCV 86.6 fL (80.0-100.0); MONOCYTES 7.6 %; MPV 8.6 fl. (7.2-11.1); NUCLEATED RBCS 0 /100WBC; PLATELET COUNT* 236 thou/uL (150-400); POLYS 68.4 %; RBC 4.83 mil/uL (4.20-5.00); RDW-CV 16.3 % (10.5-14.5); WBC 8.4 thou/uL (4.0-11.0)
[2019-07-29 11:11] LABS: APTT 34.3 Seconds (25.0-31.3); INR 1.2; PROTIME 12.3 Seconds (9.20-11.50)
[2019-07-29 11:13] LABS: CALCIUM 8.4 mg/dL (8.5-10.1); CREATININE 0.6 mg/dL (0.6-1.3)
[2019-07-29 11:27] LABS: ALBUMIN 3.9 g/dL (3.4-5.0); CK-MB MASS 1.1 ng/mL (<0.5-3.6); MAGNESIUM 1.4 mg/dL (1.8-2.4); TOTAL BILIRUBIN 0.4 mg/dL (<0.1-1.0); TOTAL PROTEIN 6.9 g/dL (6.4-8.2)
[2019-07-29 12:17] VITALS: BP 166/59
--- NOTE | 2019-07-29 12:20 | NUR ---
ER ADMIT TO 201 PATIENT TO VIA TELEPHONE REPORT GIVEN PRIOR TO ARRIVAL PATIENT ORIENTED TO AND CALL LIGHT PATIENT DENIES PAIN
--- NOTE | 2019-07-29 12:30 | NUR ---
REPORT GIVEN TO LEXUS DOUGLAS ON . PT TAKEN UP TO ROOM 201 VIA WC
[2019-07-29 14:35] LABS: CHOLESTEROL 125 mg/dL (<200); HDL CHOLESTEROL 54 mg/dL (>40); LDL CHOLESTEROL 54 mg/dL (<100); SERUM ASSESSMENT Clear; TC:HDL 2.3 Ratio (Not establshd); TRIGLYCERIDE 85 mg/dL (<150); VLDL 17 mg/dL (<40)
--- NOTE | 2019-07-29 14:57 | 2DMMODE ---
[place] [address] 2 D/M-MODE ECHOCARDIOGRAM Name: AUREA TROY Room: [address] IN [facility]#: [id number] Admission: 07/29/19 Attend Phys: Meenakshi Nixon, Discharge: Date of : 46 Date of Service: 07/29/19 1455 Report #: [id number] THIS REPORT FOR: cc: Dl Landry MD, Matthew D MD Liston, Michael J. MD [facility] ~ APPROVED REPORT Study performed: 07/29/2019 13:11:55 EXAM: Comprehensive 2D, Doppler, and color-flow Echocardiogram Patient Location: In-Patient Room #: [facility] Status: routine BSA: 1.97 HR: 68 bpm BP: 166/59 mmHg Rhythm: NSR Other Information Study Quality: Good Indications CAD Chest Pain 2D Dimensions IVSd: 11.62 (7-11mm) LVOT Diam: 19.47 (18-24mm) LVDd: 43.95 mm PWd: 10.05 (7-11mm) Ascending Ao: 28.61 (22-36mm) LVDs: 26.92 (25-40mm) Aortic Root: 27.69 mm Volumes Left Atrial Volume (Systole) LA ESV Index: 27.60 mL/m2 Aortic Valve AoV Peak Leopoldo.: 2.08 m/s AO Peak Gr.: 17.27 mmHg LVOT Max P.95 mmHg AO Mean Gr.: 9.85 mmHg LVOT Mean P.28 mmHg LVOT Max V: 1.22 m/s AO V2 VTI: 46.49 cm LVOT Mean V: 0.85 m/s ESTER (VTI): 2.00 cm2 LVOT V1 VTI: 31.19 [place] [address] 2 D/M-MODE ECHOCARDIOGRAM Name: AUREA TROY Room: [address] IN ..#: [id number] Admission: 07/29/19 Attend Phys: Meenakshi Nixon, Discharge: Date of : 46 Date of Service: 07/29/19 1455 Report #: [id number] Mitral Valve E/A Ratio: 1.00 MV Decel. Time: 242.42 ms MV E Max Leopoldo.: 1.04 m/s MV PHT: 70.30 ms MVA (PHT): 3.13 cm2 TDI E/Lateral E': 13.00 E/Medial E': 10.40 Medial E' Leopoldo.: 0.10 m/s Lateral E' Leopoldo.: 0.08 m/s Pulmonary Valve PV Peak Leopoldo.: 1.01 m/s PV Peak Gr.: 4.12 mmHg Left Ventricle The left ventricle is normal size. There is normal LV segmental wall motion. There is normal left ventricular wall thickness. Left ventricular systolic function is normal. LVEF is 60-65%. Grade I - abnormal relaxation pattern. Right Ventricle The right ventricle is normal size. The right ventricular systolic function is normal. Atria Left atrium is mildly dilated. The right atrium size is normal. Aortic Valve Mild aortic valve sclerosis. No aortic regurgitation is present. Mild aortic stenosis. Mitral Valve The mitral valve is normal in structure. Trace mitral regurgitation. No evidence of mitral valve stenosis. Tricuspid Valve The tricuspid valve is normal in structure. Unable to assess PA pressure. Trace tricuspid regurgitation. Pulmonic Valve The pulmonary valve is normal in structure. There is no pulmonic [place] [address] 2 D/M-MODE ECHOCARDIOGRAM Name: AUREA TROY Room: [address]#: [id number] Admission: 07/29/19 Attend Phys: Meenakshi Nixon, Discharge: Date of : 46 Date of Service: 07/29/19 1455 Report #: [id number] Great Vessels The aortic root is normal in size. IVC is normal in size and collapses >50% with inspiration. Pericardium There is no pericardial effusion. <Conclusion> The left ventricle is normal size. There is normal left ventricular wall thickness. Left ventricular systolic function is normal. LVEF is 60-65%. Grade I - abnormal relaxation pattern. Mild aortic valve sclerosis. Mild aortic stenosis. Left atrium is mildly dilated. IVC is normal in size and collapses >50% with inspiration. <ELECTRONICALLY SIGNED> By: Tanmay Cral MD, FACC 07/29/19 1455 1455 1455 Tanmay Carl MD, FACC /INF
[2019-07-29 16:00] VITALS: BP 156/59
--- NOTE | 2019-07-29 16:30 | EKG ---
[place] [address] ELECTROCARDIOGRAM REPORT Name: AUREA TROY Room: [address] ADM IN M.R.#: [id number] Admission: 07/29/19 Attend Phys: Meenakshi Nixon, Discharge: Date of : 46 Date of Service: 07/29/19 1020 Report #: [id number] THIS REPORT FOR: //name// [facility] ED Test Date: 2019-07-29 Test Time: 10:20:51 Pat Name: AUREA TROY Department: Room: [facility] Gender: F Tool And Die Assembler: GURPREET : 1950 Requested By: Ronan Kamara Order Number: [id number] MD: Tanmay Carl Measurements Intervals [place] Rate: 77 P: 57 DC: 165 QRS: -3 QRSD: 88 T: 36 QT: 412 QTc: 467 Interpretive Statements Sinus rhythm Compared to ECG 04/08/2019 04:44:10 No significant changes Electronically Signed On 07-29-2019 16:29:08 CDT by Tanmay Carl [email or web address] <ELECTRONICALLY SIGNED> By: Tanmay Carl MD, FACC 07/29/19 1629 1020 1020 Tanmay Carl MD, [facility] /EPI
[2019-07-29 20:12] VITALS: BP 132/55
[2019-07-30 00:05] VITALS: BP 130/66
[2019-07-30 04:31] VITALS: BP 107/60
[2019-07-30 04:43] LABS: HEMATOCRIT 39.5 % (37.0-47.0); HEMOGLOBIN 13.2 gm/dL (12.0-15.0); MCHC 33.4 g/dL (28.0-37.0); MCV 86.8 fL (80.0-100.0); MPV 8.7 fl. (7.2-11.1); RBC 4.55 mil/uL (4.20-5.00); RDW-CV 16.8 % (10.5-14.5); WBC 7.4 thou/uL (4.0-11.0)
[2019-07-30 05:20] LABS: POTASSIUM 3.9 mmol/L (3.5-5.1)
--- NOTE | 2019-07-30 05:44 | NUR ---
ASSESSMENTS COMPLETED AT BEDSIDE, PLEASE REFER TO CHARTING FOR THE DETAILS. MEDICATIONS ADMINISTERED PER MAR. NO C/O PAIN OR DISCOMFORT NOTED BY PT. HOURLY ROUNDING COMPLETED FOR SAFETY, CALL LIGHT WITHIN REACH.
[2019-07-30 08:00] VITALS: BP 136/59
[2019-07-30] MEDS ORDERED: PEPCID20 MG PO (09:43)
[2019-07-30] MEDS ORDERED: TRAMADOL 50 MG50 MG PO (09:43)
[2019-07-30] MEDS ORDERED: NYAMYC15 GM TOP (11:12)
--- NOTE | 2019-07-30 11:21 | NUR ---
Pt is A&O. Resides at home with son. Independent. Pt has a walker that she uses for mobility. Hx of [facility]. No hx of SNF. Pt to have stress test, per Dr marnie lau after stress test later today. No needs.
--- NOTE | 2019-07-30 12:04 | NUR ---
ASSUMED CARE OF PATIENT THIS AM AT 0730. PATIENT IS ALERT AND ORIENTED X 4. SHE DENIES PAIN AND DISCOMFORT THIS AM. PATIENT KEPT NPO FOR STRESS TEST THIS AM. DR IN TO ROUND. PLANS TO DISCHARGE PATIENT AFTER TESTS COMPLETED. TELE SHOWS SR WITH A 1DAVB. PATIENT TAKEN DOWN FOR STRESS TEST AT 1100.
[2019-07-30 14:30] LABS: ALBUMIN 3.7 g/dL (3.4-5.0); DIRECT BILIRUBIN 0.1 mg/dL (<0.1-0.3); TOTAL BILIRUBIN 0.3 mg/dL (<0.1-1.0); TOTAL PROTEIN 6.8 g/dL (6.4-8.2)
[2019-07-30 16:15] VITALS: BP 146/52
[2019-07-30 16:46] VITALS: BP 146/52
--- NOTE | 2019-07-30 16:57 | CARDNUC ---
[place] [address] CARDIAC NUCLEAR IMAGING REPORT Name: AUREA TROY Room: [address] IN [facility]#: [id number] Admission: 07/29/19 Attend Phys: Meenakshi Nixon, Discharge: Date of : 46 Date of Service: 07/30/19 1655 Report #: [id number] THIS REPORT FOR: cc: Dl Landry MD, Matthew D MD Liston, Michael J. MD [facility] ~ APPROVED REPORT Imaging Protocol: Stress Tc-99m/Rest Tc-99m 1 day Study performed: 07/29/2019 14:10:00 Indication: Chest pain Patient Location: In-Patient Room #: 201 Stress Tech: Twila Weldon Stress Nurse: Coretta Laurent RN Ht: 5 ft 5 in Wt: 198 lbs BSA: 1.97 m2 BMI: 32.94 Medical History Medical History: CAD s/p [place], CAD s/p stent, Diabetes, HTN, Hyperlipidemia, PVD Medications: Carvedilol, Diltiazemclopidogrel,atorvastatin, apixaban Allergies: sulfa Cardiac Risk Factors: Age, HTN, Hyperlipidemia, PVD, FHX of CAD Previous Cardiac Procedures: PCI, Myocardial infarction Exercise History: Sedentary Meds Held (24 hrs): Carvedilol Resting Data Rest SPECT myocardial perfusion imaging was performed in supine position 30 minutes following the intravenous injection of 32.8 mCi of Tc-99m Sestamibi. Time of rest injection: 16:10 Date: 07/29/2019 The images were gated to evaluate regional wall motion and calculate left ventricular ejection fraction. Administration Route: IV Pharmacologic Stress Pharmacologic stress test was performed by injecting Regadenoson 0.4 mg IV push over 10-15 seconds immediately [place] [address] CARDIAC NUCLEAR IMAGING REPORT Name: AUREA TROY Room: [address]#: [id number] Admission: 07/29/19 Attend Phys: Meenakshi Nixon, Discharge: Date of : 46 Date of Service: 07/30/19 1655 Report #: [id number] injection of 30.2 mCi of Tc-99m Sestamibi. Time of stress injection: 11:50 Date: 07/30/2019 Administration Route: IV Administration Site: Right Arm Heart Rate at time of stress injection: 136 bpm. Gated Stress SPECT was performed 45 minutes after stress injection. The images were gated to evaluate regional wall motion and calculate left ventricular ejection fraction. Stress Test Details Stress Test: Pharmacologic stress testing performed using 0.4 mg of regadenoson per 5 mL given IV over 10 seconds. Reason for pharmacologic stress test: physical limitation. HR Max Heart Rate (APMHR): 149 bpm Resting HR: 94 bpm Target HR (85% APMHR): 126 bpm Max HR Achieved: 140 bpm % of APMHR: 93 Recovery HR: 114 bpm BP Resting BP: 169/95 mmHg Max BP: 189/89 mmHg Recovery BP: 173/84 mmHg ECG Resting ECG: Sinus Rhythm Stress ECG: Sinus Tachycardia ST Change: None Arrhythmia: None Recovery ECG: Sinus Rhythm Recovery ST Change: None Recovery Arrhythmia: None Clinical Reason for Termination: Completed protocol Exercise duration: 0 min sec Exercise capacity: 1 METs The patient tolerated walking Lexiscan protocol without significant cardiac symptoms. Nurse Comments pt gait too unsteady to walk on [place] Stress ECG Conclusion The baseline 12-lead EKG show sinus rhythm [place] [address] CARDIAC NUCLEAR IMAGING REPORT Name: AUREA TROY Room: [address]#: [id number] Admission: 07/29/19 Attend Phys: Meenakshi Nixon, Discharge: Date of : 46 Date of Service: 07/30/19 1656 Report #: [id number] segment or T wave abnormality. EKGs obtained during and post walking Lexiscan protocol showed sinus rhythm and sinus tachycardia with no significant ST segment or T-wave changes when compared to baseline. Study Quality Study: Good Artifact: No artifact Study Data At rest, the left ventricular ejection fraction was 68%.. Post stress, the left ventricular ejection was 79%.. TID = 0.76. Perfusion Perfusion images obtained at rest and post stress show uniform uptake of the radioisotope throughout the myocardium. There were no defects to suggest infarct or ischemia. Wall Motion Normal left ventricular wall motion. Nuclear Conclusion ECG Findings: negative for ischemia Clinical Findings: negative for ischemia Nuclear Findings: negative for ischemia Exercise Capacity: not assessed Left Ventricular Function: normal Risk Study: low Myocardial perfusion images show no defect to suggest infarct or ischemia. Left ventricular systolic function appears normal on gated studies. This is a low risk study. <Conclusion> The baseline 12-lead EKG show sinus rhythm without significant ST segment or T wave abnormality. EKGs obtained during and post walking Lexiscan protocol showed sinus rhythm and sinus tachycardia with no significant ST segment or T-wave changes when compared to baseline. <ELECTRONICALLY SIGNED> By: Tanmay Carl MD, FACC 07/30/19 1655 1655 1655 Tanmay Carl MD, FACC /INF
[2019-07-30 17:09] VITALS: BP 146/52
== END 2019-07-30 19:05 | disposition home or self-care (01) | DRG 392 ==
LOC: M.ERS 10:12 → M.TBA-ER 12:02 → M.2W 12:02
PROVIDERS: Emergency Medicine; Registered Nurse; ADMIT Internal Medicine
DX: K21.9 Gastro-esophageal reflux disease without esophagitis (principal); R07.9 Chest pain, unspecified; I25.10 Atherosclerotic heart disease of native coronary artery without angina pectoris; I10 Essential (primary) hypertension; E11.9 Type 2 diabetes mellitus without complications; E78.5 Hyperlipidemia, unspecified; R01.1 Cardiac murmur, unspecified; I35.0 Nonrheumatic aortic (valve) stenosis; I25.2 Old myocardial infarction; Z88.2 Allergy status to sulfonamides; Z95.5 Presence of coronary angioplasty implant and graft; Z86.718 Personal history of other venous thrombosis and embolism; Z79.01 Long term (current) use of anticoagulants; Z79.899 Other long term (current) drug therapy